=== PATIENT | male | born 1985 | race Two or more races ===

== ENCOUNTER 2021-10-18 17:48 | Emergency (ER) | payer OTHER ==
[~2021-10-18] VITALS: Ht 190.5 cm; Wt 90.7 kg
[2021-10-18 21:34] VITALS: BP 148/88
== END 2021-10-18 21:34 | disposition home or self-care (01) ==
LOC: FSED 18:05
DX: M79.605 Pain in left leg (principal); R23.3 Spontaneous ecchymoses; F17.210 Nicotine dependence, cigarettes, uncomplicated
CPT/HCPCS: 80053; 85025; 93971; 99283